=== PATIENT | male | born 1935 | race Caucasian/White ===

== ENCOUNTER 2016-10-30 19:33 | Emergency (ER) | payer MEDICARE, BC ==
--- NOTE | 2016-10-30 20:02 | ERNOTE ---
Medical Problem HPI - Narrative Date of Service: 10/30/16 - General Chief Complaint: General Assessment Time Seen by Provider: 10/30/16 19:56 Source: patient, family Exam Limitations: no limitations - Immun/Allergies/Home Medications Immunizations: IMMUNIZATION HX Immunizations Up to Date Yes History of Influenza Vaccine Yes Hx Pneumococcal Vaccination Yes Allergies/Adverse Reactions: Allergies piroxicam [From Feldene] Allergy (Verified 04/27/15 11:01) Home Medications: HOME MEDICATIONS Albuterol Sulfate [Proair Respiclick] 2 puff IH Q4H PRN 10/30/16 [Last Taken Unknown] Allopurinol [Zyloprim] 300 mg PO BID 10/30/16 [Last Taken Unknown] Aspirin [Aspirin EC] 81 mg PO DAILY 10/30/16 [Last Taken Unknown] Clopidogrel Bisulfate [Plavix] 75 mg PO DAILY 10/30/16 [Last Taken Unknown] Furosemide [Lasix] 40 mg PO DAILY 10/30/16 [Last Taken Unknown] Gabapentin [Neurontin] 300 mg PO BID 10/30/16 [Last Taken Unknown] Levofloxacin [Levaquin] 500 mg PO DAILY #7 tablet 10/30/16 [Last Taken Unknown] Levothyroxine Sodium [Synthroid] 150 mcg PO DAILY 10/30/16 [Last Taken Unknown] Metoprolol Succinate [Toprol Xl] 25 mg PO DAILY 10/30/16 [Last Taken Unknown] Multivitamin [One Daily Multivitamin] 1 each PO DAILY 10/30/16 [Last Taken Unknown] Oxybutynin Chloride [Ditropan Xl] 10 mg PO DAILY 10/30/16 [Last Taken Unknown] Pravastatin Sodium 40 mg PO DAILY 10/30/16 [Last Taken Unknown] Tamsulosin HCl 0.4 mg PO DAILY 10/30/16 [Last Taken Unknown] Zolpidem Tartrate [Ambien] 0.5 - 1 tab PO HS PRN 10/30/16 [Last Taken Unknown] oxyCODONE HCL/ACETAMINOPHEN [Percocet 5 MG/325 MG] 1 - 2 tab PO Q4H PRN [Last Taken Unknown] - History of Present History Narrative: This is an 81-year-old male who is brought in with his daughter. The patient states he has been having increasing shortness of breath, no dyspnea on exertion , the last 3 days. It is been getting gradually worse. He says he is coughing a small amount. No sputum production. The patient denies any chest pain, nausea, vomiting. Per the family the patient has been increasingly confused over the last 24-36 hours, and has been having difficulty with generalized weakness. They said that he is "talking out of his head" at times. They say that he had an episode of shivering chills last night. No fever has been identified but family has not been taking his temperature. The patient denies any leg swelling or abdominal pain. He denies dysuria nausea vomiting or diarrhea. Timing: getting worse Severity: moderate Modifying Factors - (Improves): Present: other - none Modifying Factors - (Worsens): Present: other - none Review of Systems - Review of Systems Constitutional: Present: recent illness, diaphoresis, weakness, malaise EYE: Present: no symptoms reported ENT: Present: no symptoms reported Respiratory: Present: shortness of breath, cough. Absent: orthopnea, wheezing, stridor Cardiology: Present: no symptoms reported. Absent: chest pain, palpitations Gastrointestinal/Abdominal: Present: no symptoms reported. Absent: nausea, vomiting, diarrhea Genitourinary: Present: no symptoms reported. Absent: frequency, pain, dysuria , decreased urinary output Musculoskeletal: Present: no symptoms reported Skin: Present: no symptoms reported Neurological: Present: weakness - generalized Endocrine: Present: no symptoms reported Hematologic/Lymphatic: Present: no symptoms reported Psych: Present: no symptoms reported All Other Systems: All systems neg except as marked - Patient's Past Medical History Patient History - Medical: Hypothyroidism Patient History - Cardiac/Respiratory: Coronary Heart Disease, CVA/Stroke, Hypertension, Hyperlipidemia Patient History - Cancer: No Hx of Cancer Patient History - Other: None - Social History Living Situations: home Abuse History: No History of abuse Psych History: No pertinent hx Smoking Status: Former smoker Have you smoked in the past 12 months: No Alcohol Use: none Drug Use: none - Immunizations Immunizations Up to Date: Yes Hx Pneumococcal Vaccination: Yes History of Influenza Vaccine: Yes Physical Exam - Physical Exam General Appearance: Present: wd/wn, alert, no apparent distress Head Exam: Present: normal inspection, no evidence of injury Eye Exam: Normal inspection: bilateral, PERRL: bilateral, EOMI: bilateral Ears, Nose, Throat: Present: normal ENT inspection, normal pharynx Neck: Present: normal inspection, nontender, other - no JVD Respiratory: Present: no respiratory distress, normal breath sounds, no accessory muscle use, lungs clear Cardiovascular/Chest: Present: regular rate, rhythm, no murmur Gastrointestinal/Abdominal: Present: normal bowel sounds, nontender, nondistended, soft Back Exam: Present: normal inspection, normal range of motion, no CVA tenderness Extremity Exam: Present: normal inspection, normal range of motion, no edema Neurological Exam: Present: alert, oriented, normal mood/affect, no motor/ sensory deficits Skin Exam: Present: normal color, warm/dry Lymphatic Exam: Present: no adenopathy ED Progress - Results and Orders Patient's Lab Results:: I have reviewed the patient's lab results. - Vital Signs Patient's Vital Signs:: I have reviewed the patient's vital signs. Vital Signs: Vital Signs 10/30/16 19:41 Temperature 37.4 C Pulse Rate 88 Respiratory 20 Rate Blood Pressure 167/73 O2 Sat by Pulse 94 Oximetry - EKG EKG: NSR EKG read: Interp. by me EKG Comments: No acute ischemic changes normal axis normal intervals - X-Ray X-Ray #1 X-Ray: chest Interpretation: Interp. by me - cardiomegaly, questionable right lower lobe infiltrate, left costophrenic angle poorly visualized - Progress/Reassessment Chief Complaint: General Assessment Progress:: Unchanged Plan - Plan Plan: The patient's urinalysis is significant for a urinary tract infection. The patient's general weakness, malaise, confusion could all be related to this. In point of fact this is most likely cause of altered mental status and weakness in an elderly male. I've given him a gram of Rocephin. I am awaiting the other results such as chest x-ray and EKG. Provided I do not find anything else abnormal, I believe the patient is stable enough to go home with by mouth antibiotics. The patient's chest x-ray is limited by technique. He does have cardiomegaly. I am concerned for right lower lobe infiltrate. The patient definitely has a bladder infection. He will be sent home with Levaquin for his urinary tract infection which will also have excellent coverage for normal respiratory infections. I still believe that his symptoms are primarily from a urinary tract infection Departure - Departure Clinical Impression: Urinary tract infection, Congestive heart failure Clinical Impression: (Ruled Out): Urinary tract infection after immobility Disposition: Home self-care Condition: Stable Instructions: Urinary Tract Infection, Adult, [id number] Additional Instructions: As we discussed, you do have a bladder infection. This is almost certainly the cause of your weakness, confusion, difficulty with walking. I treated a with a strong antibiotic here in the emergency department he should notice that you're getting much better in the next 12 hours. There is also question of some mild heart failure. Again this is likely exacerbated by the bladder infection. I do not believe that any specific treatment needs to be focused towards this right now. A chest x-ray is a bit concerning for perhaps a tiny spot of pneumonia. Therefore I'm going to treat her with a different antibiotic, Levaquin, which will cover both the bladder infection and any pneumonia. Need to make sure he take off 7 days of the prescribed antibiotics. Vargas family doctor and set up a follow-up appointment. If you are still feeling weak or if he developed new worrisome symptoms he should return to the ER. I would give it 24 hours to see if the weakness and general confusion improves. Referrals: Sean Johnson MD [Primary Care Provider] - Prescriptions: Levofloxacin [Levaquin] 500 mg PO DAILY #7 tablet
[2016-10-30 20:03] LABS: Urine Appearance Cloudy; Urine Bilirubin Negative (NEGATIVE); Urine Color Yellow
--- OUTSIDE RECORDS SUMMARY | 2016-10-30 20:03 | XMS REPORT | Continuity of Care Document ---
:1935 Author Organization [id number] [place] [address] Care Team Providers Name Role Phone Chan Lew Zachary Primary Care Provider [phone] Source Comments This disclosure is being made pursuant to the [employer] program and maynot contain all information available regarding this patient.[id number] Active Allergies and Adverse Reactions Allergen Noted Date Severity Reactions Comments Piroxicam 05/28/2016 High Hives Current Medications Be aware that medications may not be up to date as of this document. Alwaysverify current medications with the patient. Prescription Sig. Disp. Refills Start Date End Date Status furosemide (LASIX) Take 40 mg by Active 40 MG tablet mouth daily. aspirin 81 MG EC Take 81 mg by Active tablet mouth daily. metoprolol Take 1 tablet by 60 tablet 3 06/02/2016 Active succinate mouth 2 (two) (TOPROL-XL) 25 MG times daily. 24 hr tablet pravastatin Take 1 tablet by 90 tablet 1 06/04/2016 Active (PRAVACHOL) 40 MG mouth daily. tablet allopurinol Take 1 tablet by 60 tablet 3 07/29/2016 Active (ZYLOPRIM) 300 MG mouth 2 (two) tablet times daily. oxyCODONE-acetamin Take 1-2 tablets 100 tablet 0 08/25/2016 Active ophen (PERCOCET) by mouth every 4 5-325 MG per (four) hours as tablet needed for Pain Earliest Fill Date: 08/25/16. zolpidem (AMBIEN) Take 0.5-1 30 tablet 0 09/07/2016 Active 10 MG tablet tablets (5-10 mg total) by mouth nightly as needed for Sleep. albuterol (PROAIR Inhale 2 puffs 1 Inhaler 3 09/30/2016 Active HFA;PROVENTIL into the lungs HFA;VENTOLIN HFA) every 4 (four) 108 (90 Base) hours as needed MCG/ACT inhaler for Wheezing. albuterol Take 3 mLs by 100 vial 6 09/30/2016 Active (ACCUNEB) 1.25 nebulization MG/3ML nebulizer every 6 (six) solution hours as needed for Wheezing. clopidogrel Take 1 tablet by 30 tablet 3 10/04/2016 Active (PLAVIX) 75 MG mouth daily. tablet levothyroxine Take 1 tablet by 30 tablet 5 10/18/2016 Active (SYNTHROID, mouth every LEVOTHROID) 150 morning on an MCG tablet empty stomach. Ped Take 600 mg by 10/19/19 Discontinued [id number] mouth. 17 [place] (MULTI-VIT/FLUORID E/IRON) 0.25-10 MG/ML SOLN clopidogrel Take 1 tablet by 30 tablet 3 06/04/2016 10/05/19 Discontinued (PLAVIX) 75 MG mouth daily. 17 tablet levothyroxine Take 1 tablet by 30 tablet 3 06/04/2016 10/08/19 Discontinued (SYNTHROID, mouth every 17 LEVOTHROID) 150 morning on an MCG tablet empty stomach. tamsulosin HCl Take 1 capsule by 30 capsule 2 08/04/2016 10/19/19 Discontinued (FLOMAX) 0.4 MG mouth daily. 17 capsule oxybutynin Take 1 tablet by 30 tablet 6 08/19/2016 10/19/19 Discontinued (DITROPAN XL) 10 mouth daily. 17 MG 24 hr tablet gabapentin TAKE ONE CAPSULE 59 capsule 0 09/19/2016 10/18/19 Discontinued (NEURONTIN) 300 MG BY MOUTH TODAY, 17 capsule THEN TAKE 1 CAPSULE TWICE DAILY THEREAFTER predniSONE Take two tablets 13 tablet 0 09/30/2016 10/19/19 Discontinued (DELTASONE) 20 MG together daily 17 tablet for three days, then take one tablet daily for up to seven more days levothyroxine Take 1 tablet by 30 tablet 3 10/07/2016 10/19/19 Discontinued (SYNTHROID, mouth every 17 LEVOTHROID) 150 morning on an MCG tablet empty stomach. gabapentin TAKE ONE CAPSULE 59 capsule 0 10/17/2016 10/19/19 Discontinued (NEURONTIN) 300 MG BY MOUTH TODAY, 17 capsule THEN TAKE 1 CAPSULE TWICE DAILY THEREAFTER Active Problems Problem Noted Date Cerebrovascular accident (CVA) (HCC) 10/18/2016 Benign prostatic hyperplasia 10/18/2016 Chronic pain syndrome 10/18/2016 Coronary artery disease involving [place] heart 10/18/2016 Gout 10/18/2016 Insomnia 10/18/2016 Hyperlipidemia Hypertension Thyroid disease Most Recent Encounters Date Type Specialty Providers Description 10/18/2016 Office Visit Family Medicine Chan Lew MD Thyroid disease (Primary Dx); Essential hypertension; Hyperlipidemia, unspecified hyperlipidemia type 10/17/2016 Refill Urology Eduar Dozier MD 10/07/2016 Refill Family Medicine Rajeev Jordanca L, PIG STICKER 10/04/2016 Refill Family Medicine Alexa Mccrary, PIG STICKER 09/30/2016 Office Visit Family Medicine Sean Johnson, Wheezing ( Primary Dx); Cough 09/19/2016 Refill Urology Eduar Dozier MD 09/07/2016 Refill Family Medicine Covert, Jessica S, RMA 08/25/2016 Refill Family Medicine Sonali Ramirez L, RMA 08/23/2016 Refill Urology Divina Smith, RN 08/18/2016 Refill Urology Melissa Riggins, DENISE 08/12/2016 Procedure visit UrologEduar Ruelas Hematuria (Primary Dx) MD Albino 08/06/2016 Refill Urology Yane Sumner RN 08/04/2016 Office Visit Urology Sean Johnson, Incomplete bladder MD emptying (Primary Dx); Eduar Dozier Recurrent UTI; MD Albino Glucosuria 08/04/2016 Orders Only Urology Divina Smith, RN Social History Tobacco Use Types Packs/Day Years Used Date Former Smoker Smokeless Tobacco: Never Used Alcohol Use Drinks/Week oz/Week Comments No Last Filed Vital Signs Vital Sign Reading Time Taken Blood Pressure 130/84 10/18/2016 3:37 PM CDT Pulse 85 10/18/2016 3:37 PM CDT Temperature 36.4 C (97.6 F) 10/18/2016 3:37 PM CDT Respiratory Rate 20 10/18/2016 3:37 PM CDT Height 1.727 m (5' 8") 10/18/2016 3:37 PM CDT Weight 135.172 kg (298 lb) 10/18/2016 3:37 PM CDT Body Mass Index 45.32 10/18/2016 3:37 PM CDT Oxygen Saturation 96% 10/18/2016 3:37 PM CDT Plan of Care Patient Goal Type Goal Blood Pressure Blood Pressure below 140/90 Date Type Specialty Providers Description 11/02/2016 Appointment Family Medicine Chan Lew MD [address] [place] [address] [phone] (Fax) Health Maintenance Due Date Last Done Comments Tetanus/Pertussis (1 - Tdap) 1953 Well Adult Visit 1984 Zoster Vaccine 60+ 1994 Pneumococcal Low/Medium Risk 65+ (1 of 2 - PCV13) 09/12/1999 Influenza Immunization (#1) 2016 Results from Last 3 Months Lipid panel (10/27/2016 8:21 AM) Component Value Range Cholesterol 190Comment:Cholesterol preferred <200 mg/dL. 0-200 mg/dL Clinical correlation is essential. Triglycerides 106 0-200 mg/dL HDL Cholesterol 48(L) >60 mg/dL LDL Calculated 120.8Comment: mg/dL <100Optimal 100-129 Near Optimal/Above Optimal 130-159 Borderline High 160-189 High >[id number] High Cholesterol/HDL Ratio 4.0Comment:HDL:Chol ratio Low Risk 1:3.3-1:4.3, Clinical Correlation essential. Narrative Testing performed at [facility] [employer] [facility], [address] [place] [address].Knife Cutter Theron Byrd MD Urinalysis with microscopic (10/27/2016 8:21 AM)Only the most recent of2 resultswithin the time period is included. Component Value Range *MARCELA TYPE Void Color, Fluid Yellow Yellow Clarity, Fluid Cloudy(A) Clear Specific [place] 1.024 1.001-1.035 pH 5.0 5.0-8.0 Leukocyte Esterase, UA 2+(A) Negative Nitrite Negative Negative Protein Negative Negative Glucose, Urinalysis Negative Negative Ketones, UA Negative Negative Urobilinogen Negative Negative Bilirubin Urine Negative Negative Blood Negative Negative Manual Microscopy Performed Manual Microscopy Performed. WBC 151-200(A)Comment:Culture ordered by lab if 0-2 not already ordered by physician. RBC 0-2 0-2 Epithelial Cells, Fluid None <2+ Bacteria Rare None U CAOX Many(A) None Specimen Cln Catch Narrative Testing performed at [facility] [employer] [facility], [address] [place] [address].Knife Cutter Theron Byrd MD TSH (10/27/2016 8:21 AM) Component Value Range TSH 6.339(H) 0.350-4.940 uIU/mL Narrative Testing performed at [facility], [address] [place] [address].Knife Cutter Theron Byrd MD CBC auto differential (10/27/2016 8:21 AM) Component Value Range WBC 8.0 3.1-11.0 x10^3/uL RBC 4.57 4.29-5.55 x10^6/uL Hemoglobin 14.0 13.4-16.9 g/dL Hematocrit 41.5 39.2-48.0 % MCV 90.8 82.0-98.0 fL MCH 30.6 27.2-33.3 pg MCHC 33.7 32.0-36.0 g/dL RDW 14.0 11.4-14.2 % SD-RDW 46.1 36.0-47.0 fL Platelets 135(L) 150-450 x10^3/uL MPV 9.6 9.1-12.1 fL NE% 58.0 42.0-76.0 % %LYMPH 30.1 13.5-48.0 % %MONO 7.2 3.5-14.0 % % Eosinophils 3.6 0.0-7.0 % % Basophils 0.7 0.0-1.5 % Imm Gran Relative 0.4 0.0-1.0 % NE# 4.7 1.2-7.3 x10^3/uL Lymphs # 2.4 0.7-3.5 x10^3/uL [place]# 0.6 0.2-0.9 x10^3/uL Eosinophil # 0.3 0.0-0.5 x10^3/uL Baso# 0.1 0.0-0.1 x10^3/uL Imm Gran Absolute 0.03 0.00-0.10 x10^3/uL NRBC % 0.00 0.00-0.10 /100 WBC Specimen BLOOD Narrative Testing performed at [facility], [address] [place] [address].Knife Cutter Theron Byrd MD Hepatic function panel (10/27/2016 8:21 AM) Component Value Range Albumin 3.7 3.5-5.0 g/dL Total Protein 6.8 6.1-8.0 g/dL Bilirubin Total 0.7 0.2-1.2 mg/dL Bilirubin, Direct 0.3 0.0-0.5 mg/dL Alkaline Phosphatase 68 40-150 U/L AST 16 5-34 U/L ALT 14 0-55 u/L Narrative Testing performed at [facility], [address] [place] [address].Knife Cutter Theron Byrd MD Basic metabolic panel (10/27/2016 8:21 AM)Only the most recent of2 resultswithin the time period is included. Component Value Range Glucose 132(H)Comment: 60-100 mg/dL Fasting Plasma Glucose (FPG)<100 MG/DL Impaired Fasting Glucose (IFG) 100-125 MG/DL Provisional Diagnosis of Diabetes Mellitus > zv=363 MG/DL (Diagnosis Must Be Confirmed) BUN, Blood 20 8-26 mg/dL Creatinine 1.1 0.7-1.4 mg/dL Glomerular Filtration Rate 61(L) >80 mL/min/1.73mm2 Estimate Glomerlular Filtration Rate 71(L)Comment:The estimated GFR >80 mL/min/1.73mm2 Estimate- has not been validated for women or patients with serious comorbid conditions, or with extremes of body size, muscle mass, or nutritional status. Calcium 9.9 8.4-10.2 mg/dL Sodium 141 136-145 mmol/L Potassium 4.2 3.4-4.9 mmol/L Chloride 104 99-111 mmol/L CO2 23.6 21.0-32.0 mmol/L Narrative Testing performed at [facility], [address] [place] [address].Knife Cutter Theron Byrd MD Urine culture (10/27/2016 8:21 AM)Only the most recent of2 resultswithin the time period is included. Component Value Range Urine Culture, Routine Microbiology resultsComment: MARCELA TYPE Void RESULT GREATER THAN 3 ORGANISMS, SUGGEST PROBABLE CONTAMINATION Narrative Testing performed at [facility], [address] [place] [address].Knife Cutter Theron Byrd MD CT ABDOMEN AND PELVIS WO CONTRAST (08/12/2016 3:18 PM) Narrative CT STONE PROTOCOL WO CONTRAST Reason: REASON FOR EXAM:->HEMATURIA, EVAL FOR STONE Clinical History: (INCOMPLTE BLADDER EMPTYING, RECURRENT UTI), HEMATURIA X 1 1/2 MONTHS, SOMETIMES BILATERAL FLANK PAIN, EVAL FOR STONE, UTI'S X FEW MONTHS COMPARISON:None. TECHNIQUE:Examination performed without intravenous and enteric contrast.5.0 mm axial images were obtained. Automated exposure control was used as a dose optimization technique for this examination. FINDINGS:The lung bases are clear. ABDOMEN:There is no evidence of stone within the collecting systems of either kidney.There is no evidence of obstruction. There is no focal fluid collection or inflammation.. The liver, gallbladder, kidneys, large and small bowel are normal.There is no evidence of bowel obstruction or free air. There is severe atherosclerosis of the aorta and branch vessels. PELVIS:There is no free fluid or lymphadenopathy.The bladder and prostate are unremarkable.The osseous structures notable for surgical changes in the lumbar spine and multilevel degenerative disc disease. IMPRESSION: 1.No evidence of renal stone or obstruction. THIS IS AN ELECTRONICALLY SIGNED REPORT BY READING PHYSICIAN: Curtis Nugent M.D.2016-08-12 16:11:31 Procedure Note Andrew, External Ris In - Alysa August 12, 2016 4:[address] STONE PROTOCOL WO CONTRAST Reason: REASON FOR EXAM:->HEMATURIA, EVAL FOR STONE Clinical History: (INCOMPLTE BLADDER EMPTYING, RECURRENT UTI), HEMATURIA X 1 1/2 MONTHS, SOMETIMES BILATERAL FLANK PAIN, EVAL FOR STONE, UTI'S X FEW MONTHS COMPARISON: None. TECHNIQUE: Examination performed without intravenous and enteric contrast. 5.0 mm axial images were obtained. Automated exposure control was used as a dose optimization technique for this examination. FINDINGS: The lung bases are clear. ABDOMEN: There is no evidence of stone within the collecting systems of either kidney. There is no evidence of obstruction. There is no focal fluid collection or inflammation.. The liver, gallbladder, kidneys, large and small bowel are normal. There is no evidence of bowel obstruction or free air. There is severe atherosclerosis of the aorta and branch vessels. PELVIS: There is no free fluid or lymphadenopathy. The bladder and prostate are unremarkable. The osseous structures notable for surgical changes in the lumbar spine and multilevel degenerative disc disease. IMPRESSION: 1. No evidence of renal stone or obstruction. THIS IS AN ELECTRONICALLY SIGNED REPORT BY READING PHYSICIAN: Curtis Nugent M.D. 2016-08-12 16:11:31 Hemoglobin A1c (08/04/2016 2:51 PM) Component Value Range Hemoglobin A1C 6.0Comment: % Nondiabetic Patient:4.0 - 6.0 % Diabetic Patient: < 7.0 % Clinical correlation is essential Estimated Avg Glucose 126 mg/dL Narrative Testing performed at [facility], [address] [place] [address].Knife Cutter Vinod Marino MD Insurance Payer Benefit Plan / Group Subscriber ID Type Phone Address MEDICARE MEDICARE A AND B [id number] [phone] [address] [place] [address] [employer] [place] [place] [id number] [phone] ST[id number] SUPPLEMENT [address] [place] [address] [phone] [facility] [place] [address]
[2016-10-30 20:04] LABS: Urine Blood 25 /ul (NEGATIVE); Urine Ketone Negative (NEGATIVE); Urine Nitrite Negative (NEGATIVE); Urine Protein 100 mg/dL (NEGATIVE); Urine Specific Gravity 1.015 SP.GR. (1.005-1.030); Urine Urobilinogen Normal (NORMAL); Urine pH 6.5 pH (5.0-7.0)
[2016-10-30 20:05] LABS: Urine WBC >50 /hpf (0-5)
[2016-10-30 20:11] LABS: Urine Bacteria 1+; Urine RBC 0-5 /hpf (0-5)
[2016-10-30 20:26] LABS: Hemoglobin 12.8 gm/dL (13.5-18.0); Mean Cell Volume 91.6 fl (78-100); Mean Corpuscular Hemoglobin 30.8 pg (27-31); Mean Corpuscular Hgb Conc 33.7 g/dl (32-36); Mean Platelet Volume 9.1 fl (6.0-9.5); Neutrophil # 12.1 K/mm3 (1.3-6.0); Neutrophil % 84.4 % (42-75.0); Platelet Count 119 K/mm3 (150-450); Red Blood Count 4.15 M/mm3 (4.7-6.0); Red Cell Distribution Width 14.4 % (11.5-14.0); White Blood Count 14.4 K/mm3 (4.0-10.5)
[2016-10-30] MEDS ORDERED: LEVOFLOXACIN 500 MG TABLET PO ONE (20:43)
[2016-10-30 20:46] LABS: Albumin * 3.5 gm/dl (3.4-5.0); Anion Gap 12.1 mmol/L (6.8-13.8); BUN/Creatinine Ratio 12.1 (9.0-21.6); Bilirubin, Total 0.8 mg/dL (0.0-1.1); Ca. Corrected For Albumin 8.5 mg/dL (8.4-10.2); Calcium * 8.4 mg/dL (7.9-10.9); Carbon Dioxide 28.8 mmol/L (24-32.6); Potassium 3.9 mmol/L (3.4-4.6); Total Protein 6.9 gm/dL (6.2-8.2); Troponin I 0.086 ng/ml (0.00-0.10)
[2016-10-30] MEDS ORDERED: LEVOFLOXACIN 500 MG TABLET ONE (20:53)
[2016-10-30 23:11] VITALS: BP 152/52
== END 2016-10-30 21:25 | disposition home or self-care (01) ==
LOC: ER 19:33
DX: N39.0 Urinary tract infection, site not specified (principal); I50.9 Heart failure, unspecified; E03.9 Hypothyroidism, unspecified; I10 Essential (primary) hypertension; E78.5 Hyperlipidemia, unspecified